=== PATIENT | male | born 1945 | race Caucasian/White ===

== ENCOUNTER 2018-04-02 11:43 | Outpatient (CLI) | payer MEDICARE, BC ==
--- NOTE | 2018-04-02 16:38 | RAD ---
CHEST TWO VIEWS: 04/02/18 HISTORY: Asbestos exposure. COMPARISON: 06/17/12. FINDINGS: The cardiac silhouette and pulmonary vasculature are unremarkable. Mediastinum is midline. No conflue nt air space consolidation, pleural fluid, or pneumothorax are evident. Posterior costophrenic angles are excluded from the lateral view. There are degenerative changes of the thoracic spine. IMPRESSION: No active cardiopulmonary abnormalities are demonstrated. No radiographic findings of asbestos relate d lung disease. POS: [facility]
== END 2018-04-02 11:44 | disposition home or self-care (01) ==
LOC: BURRAD 11:43
PROVIDERS: ATTEND Family Medicine
DX: Z77.090 Contact with and (suspected) exposure to asbestos (principal)
CPT/HCPCS: 71046